=== PATIENT | male | born 1945 | race Caucasian/White ===

== ENCOUNTER → 2017-10-25 | Outpatient (CLI) | payer OTHER, MEDICAID | LOC: FIMAGING 14:43 | PROVIDERS: ATTEND Internal Medicine | DX: G93.89 Other specified disorders of brain (principal) ==

== ENCOUNTER → 2017-11-28 | Outpatient (CLI) | payer OTHER, MEDICAID | LOC: FIMAGING 12:33 | PROVIDERS: ATTEND Internal Medicine | DX: S06.5X0A Traumatic subdural hemorrhage without loss of consciousness, initial encounter (principal) ==

== ENCOUNTER → 2018-05-05 | Outpatient (CLI) | payer OTHER, MEDICAID | LOC: FIMAGING 10:05 | PROVIDERS: ATTEND Internal Medicine | DX: R51 Headache (principal); I10 Essential (primary) hypertension; Z86.79 Personal history of other diseases of the circulatory system ==

== ENCOUNTER → 2018-05-17 | Outpatient (CLI) | payer OTHER, MEDICAID ==
[~2018-05-17] MED LIST: IOPAMIDOL (ISOVUE 370) 100 ML BTL IV ONE
== END ==
LOC: FIMAGING 12:57
PROVIDERS: ATTEND Internal Medicine
DX: I10 Essential (primary) hypertension (principal); I70.0 Atherosclerosis of aorta
CPT/HCPCS: 74175; Q9967

== ENCOUNTER → 2018-06-25 | Outpatient (CLI) | payer OTHER, MEDICAID | LOC: FLAB 15:31 | PROVIDERS: ATTEND Internal Medicine | DX: J34.89 Other specified disorders of nose and nasal sinuses (principal) ==

== ENCOUNTER → 2018-07-26 | Outpatient (CLI) | payer OTHER, MEDICAID | LOC: FIMAGING 10:46 ==